=== PATIENT | male | born 1960 | race Caucasian/White ===

== ENCOUNTER 2020-06-04 18:26 | Emergency (ER) | payer OTHER ==
[2020-06-04 18:59] LABS: Hemoglobin 14.2 g/dL (14.0-18.0); Mean Corpuscular HGB CONC 34.8 g/dL (32.0-36.0); Mean Corpuscular Hemoglobin 30.5 pg (27.0-31.0); Mean Corpuscular Volume 87.8 fL (78.0-98.0); Mean Platelet Volume 10.9 fL (7.4-10.4); Platelet Count 136 thou/uL (130-400); RBC Distribution Width 11.2 % (11.5-14.5); Red Blood Cell (RBC) Count 4.64 mill/uL (4.70-6.10); White Blood Cell (WBC) Count 8.8 thou/uL (4.8-10.8)
[2020-06-04 19:15] LABS: ALT (SGPT) 229 U/L (8-55); AST (SGOT) 176 U/L (5-34); Alkaline Phosphatase 229 U/L (40-110); Anion Gap 12 mmol/L (10-20); BUN (Urea Nitrogen) 42 mg/dL (8.4-25.7); Bilirubin, Total 0.6 mg/dL (0.2-1.2); Calc. Creatinine Clearance 0 mL/min (70-130); Carbon Dioxide 26 mmol/L (22-29); Chloride 93 mmol/L (98-107); Estimated GFR-MDRD 29; Globulin 3.5 g/dL (2.4-3.5); Potassium 4.3 mmol/L (3.5-5.1); Protein, Total 7.5 g/dL (6.0-8.3); Sodium 127 mmol/L (136-145)
[2020-06-04 19:16] LABS: Eosinophils 4 % (0-10); Lymphocytes 33 % (21-51); MDiff Complete? YES; Monocytes 12 % (0-10); Neutrophil 51 % (42-75); Platelet Morphology Comment Appears Adequate; RBC Morphology Normal
[2020-06-04 19:26] LABS: Glucose 616 mg/dL (70-105)
[2020-06-04] MEDS ORDERED: Insulin Regular 300 UNITS/3 ML VIAL ONE (19:53)
[2020-06-04 21:57] LABS: Anion Gap 12 mmol/L (10-20); BUN (Urea Nitrogen) 39 mg/dL (8.4-25.7); Calc. Creatinine Clearance 0 mL/min (70-130); Calcium 8.5 mg/dL (7.8-10.44); Carbon Dioxide 26 mmol/L (22-29); Chloride 98 mmol/L (98-107); Estimated GFR-MDRD 34; Glucose 432 mg/dL (70-105); Sodium 132 mmol/L (136-145)
== END 2020-06-04 23:40 ==
LOC: ERS 18:26
DX: E11.65 Type 2 diabetes mellitus with hyperglycemia (principal); N28.9 Disorder of kidney and ureter, unspecified; I11.0 Hypertensive heart disease with heart failure; I50.9 Heart failure, unspecified; F41.9 Anxiety disorder, unspecified; F31.9 Bipolar disorder, unspecified; Z79.899 Other long term (current) drug therapy
CPT/HCPCS: 36416; 80053; 83690; 85025; 96360; 96361; J1815

== ENCOUNTER 2020-06-06 18:24 | Observation (INO) | payer OTHER ==
[2020-06-06 19:19] LABS: #Eosinphils 0.1 thou/uL (0.0-0.7); #Lymphocytes 1.9 thou/uL (1.20-3.40); #Monocytes 1.1 thou/uL (0.11-0.59); #Neutrophils 5.4 thou/uL (1.40-6.50); %Basophils 0.6 % (0.0-1.0); %Eosinophils 1.2 % (0.0-10.0); %Lymphocytes 22.2 % (21.0-51.0); %Monocytes 12.9 % (0.0-10.0); %Neutrophils 63.2 % (42.0-75.0); Hemoglobin 13.3 g/dL (14.0-18.0); Mean Corpuscular Hemoglobin 30.7 pg (27.0-31.0); Mean Corpuscular Volume 87.8 fL (78.0-98.0); Mean Platelet Volume 11.1 fL (7.4-10.4); Platelet Count 124 thou/uL (130-400); RBC Distribution Width 11.2 % (11.5-14.5); Red Blood Cell (RBC) Count 4.33 mill/uL (4.70-6.10); White Blood Cell (WBC) Count 8.5 thou/uL (4.8-10.8)
[2020-06-06 19:54] LABS: ALT (SGPT) 259 U/L (8-55); AST (SGOT) 292 U/L (5-34); Albumin 3.7 g/dL (3.5-5.0); Alkaline Phosphatase 105 U/L (40-110); Anion Gap 16 mmol/L (10-20); BUN (Urea Nitrogen) 34 mg/dL (8.4-25.7); Bilirubin, Total 0.5 mg/dL (0.2-1.2); Calc. Creatinine Clearance 0 mL/min (70-130); Calcium 8.9 mg/dL (7.8-10.44); Carbon Dioxide 22 mmol/L (22-29); Chloride 98 mmol/L (98-107); Estimated GFR-MDRD 29; Globulin 3.4 g/dL (2.4-3.5); Glucose 527 mg/dL (70-105); Potassium 4.2 mmol/L (3.5-5.1); Protein, Total 7.1 g/dL (6.0-8.3); Sodium 132 mmol/L (136-145)
[2020-06-06] MEDS ORDERED: Insulin Regular 300 UNITS/3 ML VIAL ONE (20:09)
[2020-06-06 20:42] LABS: Bacteria/HPF None Seen HPF (None Seen); Bilirubin Negative (Negative); Blood, Urine Trace (Negative); Clarity Clear (Clear); Glucose, Urine (Dipstick) Greater than 1000 mg/dL (Negative); Ketone, Urine Negative (Negative); Leukocyte Negative Leu/uL (Negative); Nitrite Negative (Negative); Protein, Urine (Dipstick) Negative (Neg-Trace); RBC/HPF None Seen HPF (0-3); Specific Gravity, Urine 1.014 (1.002-1.036); Squamous Epithelial None Seen HPF (0-3); Urobilinogen Normal mg/dL (Less than 2); WBC/HPF None Seen HPF (0-3); pH, Urine 6.5 (5.0-9.0)
[2020-06-06] MEDS ORDERED: Ondansetron ODT 4 MG TAB PO PRN (21:18)
[2020-06-06] MEDS ORDERED: Acetaminophen 325 MG TAB PO PRN (21:18)
[2020-06-06] MEDS ORDERED: Dextrose 5% in Water 1,000 ML IV PRN (21:18)
[2020-06-06] MEDS ORDERED: HumaLOG 300 UNITS/3 ML VIAL SC PRN ×2 (21:18→23:34)
[2020-06-06] MEDS ORDERED: Dextrose 50% Abboject 50 ML SYRINGE SLOW IVP PRN (21:18)
[2020-06-06] MEDS ORDERED: Sodium Chloride 0.9% 1,000 ML IV SCH (21:30)
--- NOTE | 2020-06-06 21:30 | PDOC.EVN ---
Event Note - Event Note Event Note: [id number] HP
[2020-06-06 21:57] LABS: Hemoglobin A1c Greater than 14.0 % (4.0-6.0)
[2020-06-06 23:01] VITALS: BMI 22.7
--- NOTE | 2020-06-07 02:43 | HP ---
CHIEF COMPLAINT: Elevated blood sugar and weakness. HISTORY OF PRESENT ILLNESS: Mr. Morataya is a 59-year-old male with past medical history of diabetes mellitus, type 2, hypertension, congestive heart failure, coronary artery disease, cardiac stents, chronic kidney disease, among others, was brought to the emergency room with elevated blood glucose and generalized weakness. As per patient, he has not been taking his insulin since being incarcerated. He has been taking some glipizide 5 mg once daily. He reports his blood sugar has been elevated and has difficulty keeping it controlled with just oral agents. He reports that he does have a history of cardiac disease including coronary artery bypass graft surgery and cardiac stents. He denies chest pain, shortness of breath, but is feeling generalized weakness. No fever. No chills. No known exposure to coronavirus. Workup in the emergency room, the patient had a glucose of 527. The patient also was found to have a creatinine of 2.29, which is close to his baseline. Anion gap is 16. The patient is being admitted to hospital for further management. PAST MEDICAL HISTORY: As mentioned above in the history of present illness. PAST SURGICAL HISTORY: 1. Cardiac stents. 2. Coronary bypass graft surgery. PAST PSYCHIATRIC HISTORY: Anxiety, bipolar disorder, depression, PTSD. SOCIAL HISTORY: He is a former drug user. He used to abuse cocaine, marijuana and methamphetamine. The patient is a former cigarette smoker. He drinks alcohol socially. FAMILY HISTORY: Positive for cardiac disease, myocardial infarction, CVA. ALLERGIES: NO KNOWN ALLERGIES. HOME MEDICATIONS: See home medication reconciliation form for updated medications. REVIEW OF SYSTEMS: Review of 14 systems negative except what is mentioned in the history of present illness. PHYSICAL EXAMINATION: GENERAL: The patient is awake, alert, in mild distress. VITAL SIGNS: Blood pressure is 143/78, pulse is 77, respiratory rate is 18, temperature 98.4. HEAD: Normocephalic, atraumatic. NECK: Supple. No JVD. CHEST: Fair bilateral air entry. HEART: S1, S2. Regular. ABDOMEN: Soft, nontender. Bowel sounds present. NEUROLOGIC: Awake, alert, oriented x3. PSYCHIATRIC: Normal mood. EXTREMITIES: No clubbing or cyanosis. LABORATORY DATA: As mentioned above in history of present illness. ASSESSMENT AND PLAN: 1. Diabetes mellitus, type 2? with hyperglycemia. 2. Chronic kidney disease, stage 3-4 with ? acute kidney injury. 3. Hypertension. 4. Hyperlipidemia. 5. Congestive heart failure. 6. Coronary artery disease with history of coronary artery bypass graft surgery. PLAN: 1. Admit. 2. We will monitor and control blood glucose. 3. We will start the patient on basal insulin plus sliding scale insulin coverage. 4. Cautious IV fluids tonight, reassess in a.m. 5. Monitor kidney function and urine output. 6. Reconcile home medications. The patient will require insulin at the time of discharge. He has been on oral hypoglycemic since he was incarcerated, but his blood glucose has been poorly controlled. 7. Reconcile home medications. 8. Deep venous thrombosis prophylaxis as appropriate. 9. Expected length of stay, at least 1 midnight if patient is stable and further workup negative. Job ID: [id number]
[2020-06-07 06:05] LABS: Anion Gap 14 mmol/L (10-20); BUN (Urea Nitrogen) 30 mg/dL (8.4-25.7); Calc. Creatinine Clearance 47 mL/min (70-130); Calcium 8.3 mg/dL (7.8-10.44); Carbon Dioxide 23 mmol/L (22-29); Chloride 105 mmol/L (98-107); Estimated GFR-MDRD 46; Glucose 150 mg/dL (70-105); Potassium 3.7 mmol/L (3.5-5.1); Sodium 138 mmol/L (136-145)
[2020-06-07 06:23] LABS: Eosinophils 2 % (0-10); Hemoglobin 12.4 g/dL (14.0-18.0); Lymphocytes 24 % (21-51); MDiff Complete? YES; Mean Corpuscular HGB CONC 33.3 g/dL (32.0-36.0); Mean Corpuscular Hemoglobin 29.4 pg (27.0-31.0); Mean Corpuscular Volume 88.2 fL (78.0-98.0); Mean Platelet Volume 10.4 fL (7.4-10.4); Monocytes 8 % (0-10); Neutrophil 66 % (42-75); Platelet Count 119 thou/uL (130-400); Platelet Morphology Comment Appears Decreased; RBC Distribution Width 11.1 % (11.5-14.5); RBC Morphology Normal; Red Blood Cell (RBC) Count 4.22 mill/uL (4.70-6.10); White Blood Cell (WBC) Count 7.1 thou/uL (4.8-10.8)
[2020-06-07] MEDS ORDERED: Heparin 5,000 UNITS/ML VIAL SC SCH (09:00)
[2020-06-07 11:32] VITALS: BP 143/83; TEMP 98.4
[2020-06-07 11:46] LABS: SARS-CoV-2 MS2 Positive; SARS-CoV-2 N Gene Negative; SARS-CoV-2 S Gene Negative; SARS-CoV-2 by NAA Not Detected (NotDetected); SARS-CoV-2 orf1ab Negative
[2020-06-07] MEDS ORDERED: Insulin Glargine 20 UNITS in Pre-Filled Syringe 1 EACH SC SCH (21:00)
--- NOTE | 2020-06-08 03:33 | DIS ---
DATE OF ADMISSION: 06/06/2020 DATE OF DISCHARGE: 06/07/2020 DISCHARGE DIAGNOSES: 1. Uncontrolled diabetes mellitus type 2, now requiring insulin. 2. Acute kidney injury superimposed on chronic kidney disease. 3. Hypertension. 4. Hyperlipidemia. 5. History of congestive heart failure. 6. History of coronary artery disease. DISCHARGE MEDICATIONS: The patient will continue his home medications with the current exceptions: 1. Discontinue glipizide. 2. Start insulin Lantus 20 units nightly. 3. Monitor blood sugars with meals and at bedtime. The patient is to follow up with family physician next week. HISTORY OF PRESENT ILLNESS AND HOSPITAL COURSE: The patient is a 59-year-old male with past medical history of coronary artery disease, hypertension, diabetes mellitus, and congestive heart failure, who presented to the hospital with complaints of generalized weakness. He was found to be in a hyperglycemic state requiring insulin in the emergency department. His creatinine level was also found to be above his baseline. The patient was started on IV fluids. His lisinopril and glipizide were held and the patient was started on long-acting insulin. His condition improved over 24 hours with normalization of blood sugar levels and improvement of his creatinine. Job ID: [id number]
== END 2020-06-07 15:00 ==
LOC: ERS 18:24 → T4-A 20:16
PROVIDERS: ADMIT Internal Medicine; ATTEND Internal Medicine
DX: E11.65 Type 2 diabetes mellitus with hyperglycemia (principal); I13.0 Hypertensive heart and chronic kidney disease with heart failure and stage 1 through stage 4 chronic kidney disease, or unspecified chronic kidney disease; E11.22 Type 2 diabetes mellitus with diabetic chronic kidney disease; N18.4 Chronic kidney disease, stage 4 (severe); I50.9 Heart failure, unspecified; N17.9 Acute kidney failure, unspecified; I25.10 Atherosclerotic heart disease of native coronary artery without angina pectoris; E78.5 Hyperlipidemia, unspecified; F41.9 Anxiety disorder, unspecified; F31.9 Bipolar disorder, unspecified; F43.10 Post-traumatic stress disorder, unspecified; F12.11 Cannabis abuse, in remission; F14.11 Cocaine abuse, in remission; F15.11 Other stimulant abuse, in remission; Z87.891 Personal history of nicotine dependence; Z79.02 Long term (current) use of antithrombotics/antiplatelets; Z79.82 Long term (current) use of aspirin; Z79.84 Long term (current) use of oral hypoglycemic drugs; Z79.899 Other long term (current) drug therapy; Z95.1 Presence of aortocoronary bypass graft; Z95.5 Presence of coronary angioplasty implant and graft; Z20.828 Contact with and (suspected) exposure to other viral communicable diseases
CPT/HCPCS: 36415; 36416; 80048; 80053; 81003; 81015; 82010; 83036; 85025; 87635; 96361; 96372; 96374; G0378; J1644; J1815; U0003

== ENCOUNTER 2020-06-08 18:07 | Emergency (ER) | payer OTHER ==
[2020-06-08] MEDS ORDERED: Insulin Regular 300 UNITS/3 ML VIAL ONE (19:06)
[2020-06-08 19:08] LABS: Hemoglobin 13.3 g/dL (14.0-18.0); Mean Corpuscular HGB CONC 33.8 g/dL (32.0-36.0); Mean Corpuscular Hemoglobin 29.9 pg (27.0-31.0); Mean Corpuscular Volume 88.6 fL (78.0-98.0); Mean Platelet Volume 11.2 fL (7.4-10.4); Platelet Count 121 thou/uL (130-400); RBC Distribution Width 11.2 % (11.5-14.5); Red Blood Cell (RBC) Count 4.44 mill/uL (4.70-6.10); White Blood Cell (WBC) Count 7.6 thou/uL (4.8-10.8)
[2020-06-08 19:30] LABS: ALT (SGPT) 312 U/L (8-55); AST (SGOT) 387 U/L (5-34); Albumin 3.7 g/dL (3.5-5.0); Alkaline Phosphatase 102 U/L (40-110); Anion Gap 16 mmol/L (10-20); BUN (Urea Nitrogen) 30 mg/dL (8.4-25.7); Bilirubin, Total 0.5 mg/dL (0.2-1.2); Calc. Creatinine Clearance 0 mL/min (70-130); Calcium 8.9 mg/dL (7.8-10.44); Carbon Dioxide 20 mmol/L (22-29); Chloride 103 mmol/L (98-107); Estimated GFR-MDRD 40; Globulin 3.5 g/dL (2.4-3.5); Glucose 317 mg/dL (70-105); Potassium 4.2 mmol/L (3.5-5.1); Protein, Total 7.2 g/dL (6.0-8.3); Sodium 135 mmol/L (136-145)
[2020-06-08 19:43] LABS: Eosinophils 2 % (0-10); Lymphocytes 34 % (21-51); MDiff Complete? YES; Monocytes 11 % (0-10); Neutrophil 53 % (42-75); Platelet Morphology Comment Appears Decreased; RBC Morphology Normal
[2020-06-08 20:23] LABS: Bilirubin Negative (Negative); Blood, Urine Negative (Negative); Clarity Clear (Clear); Glucose, Urine (Dipstick) Greater than 1000 mg/dL (Negative); Ketone, Urine Negative (Negative); Leukocyte Negative Leu/uL (Negative); Nitrite Negative (Negative); Protein, Urine (Dipstick) Negative (Neg-Trace); Specific Gravity, Urine 1.013 (1.002-1.036); Urobilinogen Normal mg/dL (Less than 2)
[2020-06-08 20:50] LABS: Free T4 (Free Thyroxine) 0.88 ng/dL (0.70-1.48)
--- NOTE | 2020-06-08 20:52 | ULT ---
RIGHT UPPER QUADRANT ULTRASOUND: History: Elevated LFTs. FINDINGS: Real-time imaging of the right upper quadrant shows a contracted gallbladder. There is a small non-sh adowing 3 mm echogenic focus which could represent a small polyp. Technologist describes a negative u ltrasound Nobles sign. The common duct is 4 mm. Liver parenchyma shows no focal findings. Right kidney is normal in size and not obstructed. Pancreas is obscured. IMPRESSION: Contracted gallbladder. This may be related to non-fasting state. There appears to be a small gallbla dder polyp present. POS: OFF
[2020-06-08 23:34] LABS: HBCM Index 0.07 S/CO (0-0.79); Hep A IgM AB Non-Reactive (NonReactive); Hep A IgM S/CO 0.23 S/CO (0-0.79); Hep B Surf Ag Non-Reactive S/CO (NonReactive); Hepatitis B Core IgM Abs Non-Reactive (NonReactive)
[2020-06-08 23:51] LABS: Hep C IgG Ab Reflex HepC Qnt (NonReactive); Hep C Index 13.78 S/CO (0-0.79)
[2020-06-11 16:14] LABS: HCV log10 6.121 (.); Hep C PCR-Quant 1320000 IU/mL (.)
== END 2020-06-08 21:35 ==
LOC: ERS 18:07 → EEVIPCON 18:07 → ERS 21:35
DX: E11.65 Type 2 diabetes mellitus with hyperglycemia (principal); R74.0 Nonspecific elevation of levels of transaminase and lactic acid dehydrogenase [LDH]; E11.9 Type 2 diabetes mellitus without complications; I11.0 Hypertensive heart disease with heart failure; I50.9 Heart failure, unspecified; I25.10 Atherosclerotic heart disease of native coronary artery without angina pectoris; Z95.1 Presence of aortocoronary bypass graft; F41.9 Anxiety disorder, unspecified; F31.9 Bipolar disorder, unspecified; F43.10 Post-traumatic stress disorder, unspecified; Z87.891 Personal history of nicotine dependence; Z79.82 Long term (current) use of aspirin; Z79.899 Other long term (current) drug therapy
CPT/HCPCS: 36415; 36416; 76705; 80053; 80074; 81003; 84439; 84443; 85025; 87522; J1815

== ENCOUNTER 2020-06-10 19:18 | Emergency (ER) | payer OTHER ==
[2020-06-10 19:57] LABS: #Eosinphils 0.1 thou/uL (0.0-0.7); #Lymphocytes 1.7 thou/uL (1.20-3.40); #Monocytes 1.2 thou/uL (0.11-0.59); #Neutrophils 5.2 thou/uL (1.40-6.50); %Basophils 0.4 % (0.0-1.0); %Eosinophils 1.1 % (0.0-10.0); %Lymphocytes 20.4 % (21.0-51.0); %Monocytes 14.4 % (0.0-10.0); %Neutrophils 63.7 % (42.0-75.0); Hemoglobin 12.2 g/dL (14.0-18.0); Mean Corpuscular HGB CONC 34.4 g/dL (32.0-36.0); Mean Corpuscular Hemoglobin 30.3 pg (27.0-31.0); Platelet Count 134 thou/uL (130-400); RBC Distribution Width 11.4 % (11.5-14.5); Red Blood Cell (RBC) Count 4.04 mill/uL (4.70-6.10); White Blood Cell (WBC) Count 8.2 thou/uL (4.8-10.8)
[2020-06-10 20:26] LABS: Bilirubin Negative (Negative); Blood, Urine Negative (Negative); Clarity Clear (Clear); Glucose, Urine (Dipstick) 500 mg/dL (Negative); Ketone, Urine Negative (Negative); Leukocyte Negative Leu/uL (Negative); Nitrite Negative (Negative); Protein, Urine (Dipstick) Negative (Neg-Trace); Specific Gravity, Urine 1.011 (1.002-1.036); Urobilinogen Normal mg/dL (Less than 2); pH, Urine 5.5 (5.0-9.0)
[2020-06-10 20:27] LABS: ALT (SGPT) 313 U/L (8-55); AST (SGOT) 289 U/L (5-34); Albumin 3.5 g/dL (3.5-5.0); Alkaline Phosphatase 73 U/L (40-110); Anion Gap 14 mmol/L (10-20); BUN (Urea Nitrogen) 38 mg/dL (8.4-25.7); Bilirubin, Total 0.5 mg/dL (0.2-1.2); Calc. Creatinine Clearance 0 mL/min (70-130); Calcium 8.4 mg/dL (7.8-10.44); Carbon Dioxide 21 mmol/L (22-29); Chloride 105 mmol/L (98-107); Estimated GFR-MDRD 41; Glucose 256 mg/dL (70-105); Potassium 3.7 mmol/L (3.5-5.1); Protein, Total 6.5 g/dL (6.0-8.3); Sodium 136 mmol/L (136-145)
== END 2020-06-10 21:47 ==
LOC: ERS 19:18 → EEVIPCON 19:18 → ERS 21:47
DX: E11.65 Type 2 diabetes mellitus with hyperglycemia (principal); I11.0 Hypertensive heart disease with heart failure; I50.9 Heart failure, unspecified; Z95.1 Presence of aortocoronary bypass graft; F41.9 Anxiety disorder, unspecified; F31.9 Bipolar disorder, unspecified; F43.10 Post-traumatic stress disorder, unspecified; Z79.82 Long term (current) use of aspirin; Z79.899 Other long term (current) drug therapy; Z87.891 Personal history of nicotine dependence
CPT/HCPCS: 36415; 36416; 80053; 81003; 85025; 96360